=== PATIENT | male | born 1955 | race Asian ===

== ENCOUNTER 2018-09-12 21:07 | Emergency (ER) | payer MEDICAID ==
[~2018-09-12] VITALS: Ht 175.3 cm; Wt 81.6 kg
[2018-09-12] MEDS ORDERED: ASPIRIN-LOW81 MG ORAL (21:18)
[2018-09-12] MEDS ORDERED: NORVASC10 MG ORAL (21:18)
[2018-09-12] MEDS ORDERED: ATORVASTATIN CA40 MG ORAL (21:18)
[2018-09-12] MEDS ORDERED: FORTAMET1000 MG PO (21:18)
[2018-09-12] MEDS ORDERED: JANUVIA100 MG ORAL (21:18)
[2018-09-12] MEDS ORDERED: METOPROLOL SUCC50 MG ORAL (21:18)
[2018-09-12] MEDS ORDERED: LOSARTAN POTAS100 MG ORAL (21:18)
[2018-09-12 21:25] VITALS: BP 130/86
[2018-09-12] MEDS ORDERED: PREDNISONE20 MG ORAL (21:26)
[2018-09-12] MEDS ORDERED: HYDROCODON-ACE1 EA15 ORAL (21:26)
--- NOTE | 2018-09-12 21:26 | Emergency Room Report ---
History of Present Illness General Chief Complaint: Pain Source: Patient Present Illness HPI This is a 62-year-old [place] male with a history of diabetes and high blood pressure. He said his diabetes well controlled. He presents with right jaw pain is been on and off for the last to 3 weeks. Getting worse. Initially was getting better with ibuprofen but worse now. Worse with eating and opening his mouth. No clicking sensation. No fever or chills. No pain with brushing his hair. Denies any other complaint. Pain is 7 out of 10. No radiation. No swelling. No dental complaint. Allergies: Coded Allergies: No Known Allergies (Unverified , 09/12/18) Patient History Past Medical History: see triage record, old chart reviewed, DM, HTN Past Surgical History: other Pertinent Family History: none Social History: Denies: smoking Immunizations: other Reviewed Nursing Documentation: PMH: Agreed; PSxH: Agreed Nursing Documentation-PMH Hx Hypertension: Yes Hx Diabetes: Yes Review of Systems Eye: Denies: eye pain, blurred vision ENT: Denies: ear pain, nose congestion, throat swelling Respiratory: Denies: cough, shortness of breath Cardiovascular: Denies: chest pain, palpitations Gastrointestinal: Denies: abdominal pain, diarrhea, nausea, vomiting Musculoskeletal: Denies: back pain, joint pain Skin: Denies: rash Neurological: Denies: headache, numbness Endocrine: Denies: increased thirst, increased urine Hematologic/Lymphatic: Denies: easy bruising All Other Systems: negative except mentioned in HPI Physical Exam Vital Signs Date Time Temp Pulse Resp B/P (MAP) Pulse Ox O2 Delivery O2 Flow Rate FiO2 09/12/18 21:12 98.1 76 16 130/86 97 Room Air vitals unremarkable Sp02 EP Interpretation: reviewed, normal General Appearance: well appearing, no apparent distress, alert Head: normocephalic, atraumatic Eyes: bilateral eye PERRL, bilateral eye EOMI ENT: hearing grossly normal, normal pharynx, other - Patient with tenderness to the right TMJ. No warmth or redness. No edema. Worse with opening his jaw. He does have some mild trismus. No dental tenderness. Neck: full range of motion, supple, no meningismus Respiratory: chest non-tender, lungs clear, normal breath sounds Cardiovascular #1: regular rate, rhythm, no murmur Gastrointestinal: normal bowel sounds, non tender, no mass, no organomegaly, no bruit, non-distended Musculoskeletal: back normal, gait/station normal, normal range of motion Psychiatric: mood/affect normal Skin: warm/dry Medical Decision Making Diagnostic Impression: Primary Impression: TMJ arthralgia Qualified Codes: M26.621 - Arthralgia of right temporomandibular joint ER Course Patient with tenderness over the TMJ. I see no evidence of any dental abscess or infection. No evidence of any septic joint. No evidence of temporal arteritis. We'll discharge home. Last Vital Signs Date Time Temp Pulse Resp B/P (MAP) Pulse Ox O2 Delivery O2 Flow Rate FiO2 09/12/18 21:12 98.1 76 16 130/86 97 Room Air Status: unchanged Disposition: HOME, SELF-CARE Condition: Stable Scripts Prednisone* (PREDNISONE*) 20 Mg Tablet 40 MG ORAL DAILY, #8 TAB Prov: Terry White MD 09/12/18 Hydrocodone/Acetaminophen 5-325* (HYDROCODONE/ACETAMINOPHEN 5-325*) 1 Each Tablet 1 TAB ORAL Q6H PRN for For Pain, #15 TAB 0 Refills Prov: Terry White MD 09/12/18 Additional Instructions: Follow-up with your doctor in 7 days. Return if symptom worsen. Avoid hard food. Avoid chewing gum. Terry White MD Sep 12, 2018 21:26
[2018-09-12 21:34] VITALS: BP 130/86
== END 2018-09-12 21:46 | disposition home or self-care (01) ==
LOC: EMR 21:42
DX: M26.621 Arthralgia of right temporomandibular joint (principal); E11.9 Type 2 diabetes mellitus without complications; I10 Essential (primary) hypertension
CPT/HCPCS: 99282; J7512

== ENCOUNTER 2018-09-16 08:51 | Emergency (ER) | payer MEDICAID ==
[~2018-09-16] VITALS: Ht 175.3 cm; Wt 81.6 kg
[~2018-09-16 08:51] MED LIST: ASPIRIN-LOW81 MG ORAL; ATORVASTATIN CA40 MG ORAL; FORTAMET1000 MG PO; HYDROCODON-ACE1 EA15 ORAL; JANUVIA100 MG ORAL; LOSARTAN POTAS100 MG ORAL; METOPROLOL SUCC50 MG ORAL; NORVASC10 MG ORAL; PREDNISONE20 MG ORAL
--- NOTE | 2018-09-16 09:28 | Emergency Room Report ---
History of Present Illness General Chief Complaint: Pain Source: Patient Present Illness HPI Patient is 62-year-old male presented after increased swelling to the right side of his face. The patient reports having no recent trauma. He reports having increased numbness to the lower jaw. The patient does not recall any recent dental pain. That he had previous visit in which she was started on oral steroids as well as pain medications.The patient reports having onset after a dental cleaning. Allergies: Coded Allergies: No Known Allergies (Unverified , 09/12/18) Patient History Past Medical History: see triage record Reviewed Nursing Documentation: PMH: Agreed; PSxH: Agreed Nursing Documentation-PM Past Medical History: No History, Except For Hx Hypertension: Yes Hx Diabetes: Yes Review of Systems All Other Systems: negative except mentioned in HPI Physical Exam Vital Signs Date Time Temp Pulse Resp B/P (MAP) Pulse Ox O2 Delivery O2 Flow Rate FiO2 09/16/18 08:58 98.1 66 18 145/89 98 Room Air Sp02 EP Interpretation: reviewed, normal General Appearance: normal inspection, well appearing, no apparent distress, alert, GCS 15 Head: atraumatic ENT: normal ENT inspection, hearing grossly normal, normal voice, other - right side submandibular swelling, slight trismus, no erythema Neck: normal inspection, full range of motion, supple, no bony tend Respiratory: normal inspection, lungs clear, normal breath sounds, no respiratory distress, no retraction, no wheezing Cardiovascular #1: regular rate, rhythm, no edema Gastrointestinal: normal inspection, normal bowel sounds, non tender, soft, no guarding, no hernia Genitourinary: no CVA tenderness Musculoskeletal: normal inspection, back normal, normal range of motion Neurologic: normal inspection, alert, responsive, speech normal Psychiatric: normal inspection, judgement/insight normal, mood/affect normal Skin: normal inspection, normal color, no rash Medical Decision Making Diagnostic Impression: Primary Impression: Pain, dental Additional Impression: Right facial numbness ER Course The patient presented for right-sided facial pain. The patient was noted to have significant swelling to the right anterior soft tissue below the parotid gland. The differential diagnosis included was not limited to abscess, parotid tumor, dental infection, so mandibular infection and among others. Because of complexity of patient's case laboratory testing and imaging studies were ordered. The CT of the facial bones read by radiology showed no evidence of abscess. The patient was noted to have the some dental caries and was given protrusion for oral antibiotics. Patient is advised follow-up with ENT for further evaluation and definitive management.The patient is advised to withhold metformin for 2 days. Labs Test 09/16/18 09:40 White Blood Count 9.9 K/UL (4.8-10.8) Red Blood Count 5.10 M/UL (4.70-6.10) Hemoglobin 14.9 G/DL (14.2-18.0) Hematocrit 44.2 % (42.0-52.0) Mean Corpuscular Volume 87 FL (80-99) Mean Corpuscular Hemoglobin 29.1 PG (27.0-31.0) Mean Corpuscular Hemoglobin Concent 33.7 G/DL (32.0-36.0) Red Cell Distribution Width 11.4 % (11.6-14.8) Platelet Count 213 K/UL (150-450) Mean Platelet Volume 6.2 FL (6.5-10.1) Neutrophils (%) (Auto) 61.4 % (45.0-75.0) Lymphocytes (%) (Auto) 27.6 % (20.0-45.0) Monocytes (%) (Auto) 9.1 % (1.0-10.0) Eosinophils (%) (Auto) 1.0 % (0.0-3.0) Basophils (%) (Auto) 0.9 % (0.0-2.0) Prothrombin Time 10.0 SEC (9.30-11.50) Prothromb Time International Ratio 0.9 (0.9-1.1) Activated Partial Thromboplast Time 26 SEC (23-33) Sodium Level 138 MMOL/L (136-145) Potassium Level 3.8 MMOL/L (3.5-5.1) Chloride Level 102 MMOL/L (98-107) Carbon Dioxide Level 28 MMOL/L (21-32) Anion Gap 8 mmol/L (5-15) Blood Urea Nitrogen 19 mg/dL (7-18) Creatinine 1.2 MG/DL (0.55-1.30) Estimat Glomerular Filtration Rate > 60 mL/min (>60) Glucose Level 263 MG/DL (74-106) Calcium Level 8.9 MG/DL (8.5-10.1) Total Bilirubin 0.6 MG/DL (0.2-1.0) Aspartate Amino Transf (AST/SGOT) 17 U/L (15-37) Alanine Aminotransferase (ALT/SGPT) 28 U/L (12-78) Alkaline Phosphatase 46 U/L (46-116) Total Protein 7.7 G/DL (6.4-8.2) Albumin 3.5 G/DL (3.4-5.0) Globulin 4.2 g/dL Albumin/Globulin Ratio 0.8 (1.0-2.7) Last Vital Signs Date Time Temp Pulse Resp B/P (MAP) Pulse Ox O2 Delivery O2 Flow Rate FiO2 09/16/18 08:58 98.1 66 18 145/89 98 Room Air Status: improved Disposition: HOME, SELF-CARE Condition: Stable Scripts Gabapentin* (GABAPENTIN*) 300 Mg Capsule 300 MG ORAL THREE TIMES A DAY, #60 CAP 0 Refills Prov: Sacha Sanchez MD 09/16/18 Penicillin V Potassium* (PENVK*) 500 Mg Tablet 500 MG PO Q6H, #28 TAB 0 Refills Prov: Sacha Sanchez MD 09/16/18 Sacha Sanchez MD Sep 16, 2018 09:28
[2018-09-16] MEDS ORDERED: Ampicillin/Sulbactam Sod 3 GM in NS 110 ML IVPB ONE (09:30)
[2018-09-16] MEDS ORDERED: Isovue-300 100ml vial INJ PRN (09:30)
[2018-09-16] MEDS ORDERED: Unasyn 3gm Inj ONE (09:42)
[2018-09-16 09:51] VITALS: BP 130/79
[2018-09-16 10:06] LABS: BASOPHILS % (AUTO) 0.9 % (0.0-2.0); HEMATOCRIT 44.2 % (42.0-52.0); HEMOGLOBIN 14.9 G/DL (14.2-18.0); LYMPHOCYTES % (AUTO) 27.6 % (20.0-45.0); MEAN CORPUSCULAR VOLUME 87 FL (80-99); MONOCYTES % (AUTO) 9.1 % (1.0-10.0); NEUTROPHILS % (AUTO) 61.4 % (45.0-75.0); PLATELET COUNT 213 K/UL (150-450); RED CELL DISTRIBUTION WIDTH 11.4 % (11.6-14.8); WHITE BLOOD COUNT 9.9 K/UL (4.8-10.8)
[2018-09-16 10:07] LABS: INR 0.9 (0.9-1.1)
[2018-09-16 10:11] LABS: ANION GAP 8 mmol/L (5-15); BLOOD UREA NITROGEN 19 mg/dL (7-18); CALCIUM 8.9 MG/DL (8.5-10.1); CARBON DIOXIDE 28 MMOL/L (21-32); CHLORIDE 102 MMOL/L (98-107); CREATININE 1.2 MG/DL (0.55-1.30); POTASSIUM 3.8 MMOL/L (3.5-5.1); SODIUM 138 MMOL/L (136-145)
[2018-09-16 10:16] LABS: ALANINE AMINOTRANSFERASE 28 U/L (12-78); ALBUMIN 3.5 G/DL (3.4-5.0); ALBUMIN/GLOBULIN RATIO 0.8 (1.0-2.7); ALKALINE PHOSPHATASE 46 U/L (46-116); ASPARTATE AMINO TRANSFERASE 17 U/L (15-37); BILIRUBIN,TOTAL 0.6 MG/DL (0.2-1.0)
--- NOTE | 2018-09-16 11:04 | Diagnostic Imaging Report ---
EXAM: CT Maxillofacial With Intravenous Contrast CLINICAL HISTORY: PAIN TECHNIQUE: Axial computed tomography images of the face with intravenous contrast. CTDI is 28.19 mGy and DLP is 604 mGy-cm. One or more of the following dose reduction techniques were used: automated exposure control, adjustment of the mA and/or kV according to patient size, use of iterative reconstruction technique. COMPARISON: No relevant prior studies available. FINDINGS: Bones/joints: No fracture. Cervical spondylosis and ankylosis. Ossification of the posterior longitudinal ligament. Soft tissues: Unremarkable. Orbits: Unremarkable. Sinuses: No acute sinusitis. IMPRESSION: No acute findings.
[2018-09-16] MEDS ORDERED: GABAPENTIN300 MG ORAL (11:30)
[2018-09-16] MEDS ORDERED: PENICILLIN V P500 MG PO (11:30)
[2018-09-16 15:46] VITALS: BP 130/79
== END 2018-09-16 12:00 | disposition home or self-care (01) ==
LOC: EMR 09:48
DX: K08.89 Other specified disorders of teeth and supporting structures (principal); R20.0 Anesthesia of skin; I10 Essential (primary) hypertension; E11.9 Type 2 diabetes mellitus without complications
CPT/HCPCS: 36415; 70487; 80053; 85025; 85610; 85730; 96365; 99284; J0295; Q9967

== ENCOUNTER 2020-07-08 12:29 | Emergency (ER) | payer MEDICAID ==
[~2020-07-08] VITALS: Ht 175.3 cm; Wt 78.0 kg
[~2020-07-08 12:29] MED LIST changes: +GABAPENTIN300 MG ORAL; +PENICILLIN V P500 MG PO
--- NOTE | 2020-07-08 12:50 | NUR ---
ED Nurse Note: Pt ambulated to ed c/o right lower leg pain x 2 weeks and pain increases upon ambultation. Pt is Aox4, VSS, on RA, afebrile on triage. Placed on bed will continue to monitor
--- NOTE | 2020-07-08 13:19 | Emergency Room Report ---
History of Present Illness General Chief Complaint: Lower Extremity Injury Source: Patient (Divya Aguilar) Present Illness HPI 64-year-old male presents to the emergency department complaining of 5 out of 10 severity pain to the right lower montanez/calf progressive x1 week. Patient reports increased pain with walking. 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 Patient states that he is attempted to take 600 mg ibuprofen with absolutely no relief of his symptoms. Patient states he does have some aching at rest. He denies trauma or fall. He does report history of varicose veins. He reports history of high blood pressure and diabetes. He denies skin color changes, bruises, open wounds or bleeding. He denies low back pain, thigh pain or foot pain. Patient denies notable swelling in the affected lower extremity. He denies fevers or chills. He denies pare sthesias. He denies CP or SOB. Denies dyspnea. No other aggravating or relieving factors at this time. He denies smoking hx or recent travel. PT. later recalls that he dropped a carton of milk on his right foot last week. 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 (Divya Aguilar) Patient History Past Medical History: see triage record Past Surgical History: none Pertinent Family History: none Reviewed Nursing Documentation: PMH: Agreed; PSxH: Agreed (Divya Aguilar) Nursing Documentation-PMH Past Medical History: No History, Except For Hx Hypertension: Yes Hx Diabetes: Yes (Divya Aguilar) Review of Systems All Other Systems: negative except mentioned in HPI (Divya Aguilar) Physical Exam Vital Signs Date Time Temp Pulse Resp B/P (MAP) Pulse Ox O2 Delivery O2 Flow Rate FiO2 07/08/20 12:33 98.2 97 16 140/89 (106) 98 Room Air Sp02 EP Interpretation: reviewed, normal General Appearance: no apparent distress, alert, GCS 15, non-toxic Head: normocephalic, atraumatic Eyes: bilateral eye normal inspection, bilateral eye PERRL ENT: hearing grossly normal, normal voice Neck: full range of motion Respiratory: lungs clear, normal breath sounds, speaking full sentences Cardiovascular #1: regular rate, rhythm, normal capillary refill Musculoskeletal: back normal, normal range of motion, gait/station normal, tender - TTP to the lateral right calf and lateral anterior right montanez. There are several varicose veins noted. NO skin color changes. , no erytema or warmth. Neurologic: alert, motor strength/tone normal, oriented x3, sensory intact, responsive, speech normal, normal gait, grossly normal Psychiatric: judgement/insight normal Skin: no rash, normal color, other - Right Calf and thigh: There are several varicose veins noted. NO skin color changes. , no erytema or warmth. (Divya Aguilar) Medical Decision Making PA Attestation Dr. Nixon Is my supervising Physician whom patient management has been discussed with. (Divya Aguilar) Diagnostic Impression: Primary Impression: Pain of right lower extremity Additional Impressions: Varicose veins of right lower extremity with pain Overuse syndrome of lower leg Qualified Codes: S86.911A - Strain of unspecified muscle(s) and tendon(s) at lower leg level, right leg, initial encounter; X50.3XXA - Overexertion from repetitive movements, initial encounter Contusion of foot, right Qualified Codes: S90.31XA - Contusion of right foot, initial encounter ER Course 64-year-old male presents to the emergency department complaining of 5 out of 10 severity pain to the right lower montanez/calf progressive x1 week. Patient reports increased pain with walking. 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 Patient states that he is attempted to take 600 mg ibuprofen with absolutely no relief of his symptoms. Patient states he does have some aching at rest. He denies trauma or fall. He does report history of varicose veins. He reports history of high blood pressure and diabetes. He denies skin color changes, bruises, open wounds or bleeding. He denies low back pain, thigh pain or foot pain. Patient denies notable swelling in the affected lower extremity. He denies fevers or chills. He denies paresthesias. He denies CP or SOB. Denies dyspnea. No other aggravating or relieving factors at this time. He denies smoking hx or recent travel. PT. later recalls that he dropped a carton of milk on his right foot last week. He states he is still having pain and that he would like his foot xrayed Ddx considered but are not limited to Cellulitis, DVT, varicose vein, PAD,Venous insufficiency, montanez splints, overuse syndrome Vital signs: are WNL, pt. is afebrile H&PE are most consistent with over use syndrome: Montanez splints, must R/O dvt due to varicose veins and no hx of trauma/fall. ORDERS: - Venous Duplex US Right Lower Extremity: ED INTERVENTIONS: None required at this time. Gadiel wrap applied to the Right foot/ankle by biomed tech. Pt. remains neurovascularly intact. DISCHARGE: At this time pt. is stable for d/c to home. Will provide printed patient care instructions, and any necessary prescriptions. Care plan and follow up instructions have been discussed with the patient prior to discharge. (Divya Aguilar) Other X-Ray Diagnostic Results Other X-Ray Diagnostic Results : X-Ray ordered: Right Foot # of Views/Limited Vs Complete: 3 View Indication: Pain EP Interpretation: Yes PA Xray: Interpretation reviewed, by supervising MD, and agrees with findings. Interpretation: no dislocation, no soft tissue swelling, no fractures Impression: No acute disease Electronically Signed by: Divya INGRAM Scribe Text degenerative changes and bone spurs, no obvious acute fractures noted. (Divya Aguilar) Other X-Ray Diagnostic Results : Electronically Signed by: Donald A documentation of Xray reviewed by me and is accurate, Jordan Nixon MD (Jordan Nixon MD) CT/MRI/US Diagnostic Results CT/MRI/US Diagnostic Results : Imaging Test Ordered: Venous Duplex US Right Lower Extremity Impression " Negative for acute DVT". --Per official radiology report- Please see report for specific details. (Divya Aguilar) Last Vital Signs Date Time Temp Pulse Resp B/P (MAP) Pulse Ox O2 Delivery O2 Flow Rate FiO2 07/08/20 12:33 98.2 97 16 140/89 (106) 98 Room Air Status: improved (Divya Aguilar) Disposition: HOME, SELF-CARE Condition: Stable Scripts Diclofenac Sodium (VOLTAREN) 100 Gm Gel..gram. 1 APPLIC TP TID, #100 GM Prov: Divya Aguilar 07/08/20 Acetaminophen* (TYLENOL EXTRA STRENGTH*) 500 Mg Tablet 500 MG ORAL Q6H, #30 TAB 0 Refills Prov: Divya Aguilar 07/08/20 Methocarbamol* (ROBAXIN-750*) 750 Mg Tablet 750 MG PO QID, #28 TAB 0 Refills Prov: Divya Aguilar 07/08/20 Referrals: Jon Guerra [facility]. [facility] + [facility] Departure Forms: Return to Work Return to Work Date: Jul 12, 2020 Other Restrictions: May return Sooner if Symptoms have resolved. Return to Full Activity: Jul 15, 2020 Work Restrictions: No Heavy Lifting, No Prolonged Standing Patient Instructions: Foot Contusion, [id number], Muscle Pain, Adult, Montanez Splints Additional Instructions: Take medications as directed. Do not drink alcohol, drive, or operate heavy machinery while taking Robaxin ( Muscle Relaxers) as this may cause drowsiness. Follow up with a Primary Care Provider in 3-5 days, even if your symptoms have resolved. --Please review list of primary care clinics, if you do not already have a primary care provider Return sooner to ED if new symptoms occur, or current symptoms become worse. - Please note that this Emergency Department Report was dictated using [employer] plant operator technology software, occasionally this can lead to erroneous entry secondary to interpretation by the dictation equipment. Divya Aguilar Jul 08, 2020 13:19 Jordan Nixon MD Jul 12, 2020 07:34
--- NOTE | 2020-07-08 13:44 | NUR ---
ED Nurse Note: US tech at bedside.
--- NOTE | 2020-07-08 14:15 | NUR ---
ED Nurse Note: US done. (-) DVT per US tech.
--- NOTE | 2020-07-08 14:26 | NUR ---
ED Nurse Note: x-ray tech at bedside.
[2020-07-08 14:40] VITALS: BP 132/78
[2020-07-08] MEDS ORDERED: VOLTAREN100 G1 TP (14:41)
[2020-07-08] MEDS ORDERED: TYLENOL EXTRA500 MG ORAL (14:41)
[2020-07-08] MEDS ORDERED: ROBAXIN-750750 MG PO (14:41)
--- NOTE | 2020-07-08 15:41 | Diagnostic Imaging Report ---
Indication:Leg pain and swelling Technique: Grayscale and duplex Doppler imaging of the veins in right lower extremity performed in real time utilizing compression and augmentation. Comparison: None Findings: Duplex Doppler interrogation of the veins in right lower extremity is performed from the common femoral vein to the popliteal vein. Normal venous compressibility demonstrated throughout. No thrombus identified. Waveform analysis shows good respiratory phasicity and augmentation. IMPRESSION: No evidence of deep venous thrombosis involving the right lower extremity.
--- NOTE | 2020-07-08 16:25 | Diagnostic Imaging Report ---
INDICATION: Foot pain TECHNIQUE: XRAY Foot Complete R Multiple views of the right foot were obtained COMPARISON: None FINDINGS: There is no acute fracture or dislocation. Joint spaces are maintained. No acute soft tissue abnormality. Calcaneal disease affects are noted. IMPRESSION: No acute fracture or dislocation.
== END 2020-07-08 14:40 | disposition home or self-care (01) ==
LOC: EMR 13:05
DX: M79.604 Pain in right leg (principal); I83.91 Asymptomatic varicose veins of right lower extremity; S86.911A Strain of unspecified muscle(s) and tendon(s) at lower leg level, right leg, initial encounter; S90.31XA Contusion of right foot, initial encounter; E11.9 Type 2 diabetes mellitus without complications; I10 Essential (primary) hypertension; X58.XXXA Exposure to other specified factors, initial encounter; Y92.9 Unspecified place or not applicable
CPT/HCPCS: 73630; 93971; Z7502; 99284